=== PATIENT | male | born 2000 | race Hispanic/Latino ===

== ENCOUNTER 2022-03-21 09:48 | Emergency (ER) | payer MEDICAID ==
[~2022-03-21] VITALS: Ht 160 cm; Wt 81.6 kg
[2022-03-21] MEDS ORDERED: ONDANSETRON 4MG INJ ONE (10:19)
[2022-03-21] MEDS ORDERED: FAMOTIDINE 20MG VIAL IV ONE (10:19)
[2022-03-21 10:27] LABS: BASOPHILS % (AUTO) 0.5 % (0.0-5.0); EOSINOPHILS % (AUTO) 0.7 % (0.0-8.0); HEMATOCRIT 43.5 % (42-54); LYMPHOCYTES % (AUTO) 22.3 % (21.0-51.0); MEAN CORPUSCULAR HEMOGLOBIN 30.4 pg (27.0-33.0); MEAN CORPUSCULAR VOLUME 89.3 fL (80-100); NEUTROPHILS % (AUTO) 69.2 % (40.0-77.0); PLATELET COUNT (AUTO) 269 K/uL (130-400); RED BLOOD CELL COUNT(AUTO) 4.87 MIL/uL (4.50-6.20); RED CELL DISTRIBUTION WIDTH 11.9 % (11.0-15.5); WHITE BLOOD COUNT (AUTO) 9.1 K/uL (4.8-10.8)
[2022-03-21] MEDS ORDERED: FAMOTIDINE 20MG VIAL IV SCH (10:30)
[2022-03-21] MEDS: ONDANSETRON 4MG INJ IVP SCH ×2 (10:30→13:33)
[2022-03-21 10:55] LABS: ALBUMIN 4.7 g/dL (3.5-5.0); BILIRUBIN,TOTAL 0.9 mg/dL (0.2-1.0); TOTAL PROTEIN, SERUM 7.9 g/dL (6.0-8.3)
[2022-03-21 11:31] LABS: POTASSIUM 2.5 mmol/L (3.5-5.1)
[2022-03-21] MEDS ORDERED: POTASSIUM BICARB/CIT AC 25 MEQ TABLET.EFF PO SCH (12:00)
[2022-03-21] MEDS ORDERED: LIDOCAINE HCL-MPF 1% 2ML VIAL ONE (12:38)
[2022-03-21] MEDS ORDERED: 0.9%NACL 1000ML 2,000 ML IV ONE (12:38)
[2022-03-21] MEDS ORDERED: POTASSIUM CHLORIDE 20MEQ/100ML 0 ML IV ONE (12:38)
[2022-03-21 14:18] LABS: APPEARANCE,URINE CLEAR (CLEAR); BILIRUBIN,URINE NEGATIVE (NEGATIVE); COLOR,URINE YELLOW (YELLOW); GLUCOSE, URINE (UA) NEGATIVE (NEGATIVE); KETONES,URINE >=80 mg/dL (NEGATIVE); LEUKOCYTE ESTERASE ,URINE NEGATIVE (NEGATIVE); NITRATE,URINE NEGATIVE (NEGATIVE); OCCULT BLOOD,URINE NEGATIVE (NEGATIVE); PROTEIN,URINE NEGATIVE (NEGATIVE); UROBILINOGEN,URINE 0.2 mg/dL (0.2-1.0)
[2022-03-21 14:30] LABS: BACTERIA,URINE Rare /HPF (None Seen); RBC,URINE 0-1 /HPF (0-1); SQUAMOUS EPITHELIAL CELL,UR Rare /HPF (0-2); WBC,URINE 0-1 /HPF (0-1)
[2022-03-21] MEDS ORDERED: 0.9%NACL 1000ML 1,000 ML IV ONE (14:46)
[2022-03-21] MEDS ORDERED: HYOS0.124 SL (15:52)
[2022-03-21] MEDS ORDERED: ONDA4TAB10 PO (15:52)
[2022-03-21] MEDS ORDERED: PANT40TA55 PO (15:52)
[2022-03-21 15:57] VITALS: BP 139/66
== END 2022-03-21 16:06 | disposition home or self-care (01) ==
LOC: EDH 09:48
DX: R10.13 Epigastric pain (principal); R11.2 Nausea with vomiting, unspecified; E87.6 Hypokalemia; E86.0 Dehydration; F32.A Depression, unspecified; F41.9 Anxiety disorder, unspecified
CPT/HCPCS: 36415; 80053; 81001; 82150; 83690; 84132; 85025; 96361; 96374; 96375; 96376; 99284; J2405 ×2; J7030 ×2; S0028; J3480; J3490

== ENCOUNTER 2022-06-14 17:32 | Emergency (ER) | payer MEDICAID ==
[~2022-06-14] VITALS: Ht 177.8 cm; Wt 74.8 kg
[~2022-06-14 17:32] MED LIST: HYOS0.124 SL; ONDA4TAB10 PO; PANT40TA55 PO
[2022-06-14 17:33] VITALS: BP 140/74
[2022-06-14] MEDS ORDERED: 0.9%NACL 1000ML 1,000 ML IV ONE (18:30)
== END 2022-06-14 18:59 | disposition left against medical advice (07) ==
LOC: EDH 17:32
DX: R11.2 Nausea with vomiting, unspecified (principal); Z53.21 Procedure and treatment not carried out due to patient leaving prior to being seen by health care provider

== ENCOUNTER 2023-01-23 08:17 | Emergency (ER) | payer BC, MEDICAID ==
[~2023-01-23] VITALS: Ht 172.7 cm; Wt 81.6 kg
[2023-01-23 08:51] LABS: BASOPHILS % (AUTO) 0.7 % (0.0-5.0); EOSINOPHILS % (AUTO) 0.7 % (0.0-8.0); HEMATOCRIT 45.2 % (42-54); LYMPHOCYTES % (AUTO) 12.7 % (21.0-51.0); MEAN CORPUSCULAR HEMOGLOBIN 30.5 pg (27.0-33.0); MEAN CORPUSCULAR HGB CONC 34.7 g/dL (32.0-36.0); MEAN CORPUSCULAR VOLUME 87.8 fL (80-100); NEUTROPHILS % (AUTO) 80.5 % (40.0-77.0); PLATELET COUNT (AUTO) 265 K/uL (130-400); RED BLOOD CELL COUNT(AUTO) 5.15 MIL/uL (4.50-6.20); RED CELL DISTRIBUTION WIDTH 11.9 % (11.0-15.5); WHITE BLOOD COUNT (AUTO) 12.1 K/uL (4.8-10.8)
[2023-01-23] MEDS ORDERED: 0.9%NACL 1000ML 2,500 ML IV SCH (09:00)
[2023-01-23] MEDS ORDERED: LIDOCAINE HCL 2% VISCOUS 15 ML UDCUP PO SCH (09:00)
[2023-01-23] MEDS ORDERED: MAG/ALUM/SIMETH 30 ML UDCUP PO SCH (09:00)
[2023-01-23 09:13] LABS: ALBUMIN 4.8 g/dL (3.5-5.0); CREATININE 1.3 mg/dL (0.5-1.5); TOTAL PROTEIN, SERUM 8.5 g/dL (6.0-8.3)
[2023-01-23] MEDS ORDERED: IOHEXOL 350 MG/ML 100ML INFUS..BTL IV ONE (09:29)
[2023-01-23 09:47] LABS: POTASSIUM 2.6 mmol/L (3.5-5.1)
[2023-01-23] MEDS ORDERED: POTASSIUM CHLORIDE 20MEQ/10ML 10 MEQ in 0.9%NACL 50ML 50 ML IV SCH ×4 (10:00)
[2023-01-23] MEDS ORDERED: IBUP-1493 PO (10:28)
[2023-01-23] MEDS ORDERED: OMEP40CA21 PO (10:28)
[2023-01-23] MEDS ORDERED: ONDA-104 PO (10:28)
[2023-01-23] MEDS ORDERED: POTASSIUM CHLORIDE 20MEQ/100ML 100 ML IV SCH (10:30)
[2023-01-23 12:46] VITALS: BP 160/74
== END 2023-01-23 12:46 | disposition home or self-care (01) ==
LOC: EDH 08:17
DX: K29.00 Acute gastritis without bleeding (principal); E87.6 Hypokalemia; E11.9 Type 2 diabetes mellitus without complications; Z79.899 Other long term (current) drug therapy
CPT/HCPCS: 99284; 74177; 96365; 96366; 96361; 80053; 85025; 36415; 93005 ×2; J3480; Q9967